=== PATIENT | male | born 1975 | race Caucasian/White ===

== ENCOUNTER → 2021-06-29 | Outpatient (CLI) | payer OTHER ==
--- NOTE | 2021-06-29 09:28 | US ---
EXAMINATION TYPE: US abdomen complete DATE OF EXAM: 06/29/2021 COMPARISON: NONE CLINICAL HISTORY: R10.11 Right upper quadrant pain. RUQ pain for the past 2 months, HTN EXAM MEASUREMENTS: Liver Length: 17.6 cm Gallbladder Wall: 0.2 cm CBD: 0.3 cm Spleen: 8.5 x 3.7 cm Right Kidney: 11.4 x 5.3 x 4.6 cm Left Kidney: 10.8 x 5.7 x 6.5 cm Pancreas: Echogenic Liver: Increased attenuation Gallbladder: wnl Evidence for sonographic Gurrola's sign: No CBD: wnl Spleen: wnl Right Kidney: No hydronephrosis or masses seen Left Kidney: No hydronephrosis or masses seen Upper IVC: wnl Abd Aorta: wnl Accessory spleen seen measuring 1.2 x 1.3 x 1.1cm The liver is homogenous. The intrahepatic portion of the IVC and proximal abdominal aorta are within normal limits. There is no evidence of cholelithiasis. Common bile duct is unremarkable. The visu alized portions of the pancreas are homogenous. The spleen is unremarkable. Kidneys are symmetric a nd free of hydronephrosis. No renal lesions are seen. IMPRESSION: No significant abnormality appreciated.
== END | disposition home or self-care (01) ==
LOC: RADUSWWP 08:36
PROVIDERS: ATTEND Family Medicine
DX: R10.11 Right upper quadrant pain (principal)
CPT/HCPCS: 76700